=== PATIENT | female | born 1975 | race Caucasian/White ===

== ENCOUNTER 2016-10-08 16:15 | Emergency (ER) | payer MEDICAID ==
[~2016-10-08] VITALS: Ht 154.9 cm; Wt 79.5 kg
[~2016-10-08 16:15] MED LIST: ALBU18HF INH; BENZ-5 PO; ETHA400T25 PO; FLORANEX PO; HYDR-3011 PO; INSU100I27 SC; ISON300T72 PO; METF500T PO; NOVO3I SC; PRED20TA PO; PYR500 PO; Pyridoxine Hcl PO; RIF120L PO; RTPRO NEB
[2016-10-08 16:18] VITALS: Ht 154.9 cm; Wt 79.5 kg
[2016-10-08] MEDS ORDERED: CEPH-443 PO (16:26)
[2016-10-08] MEDS ORDERED: IBUP-1542 PO (16:27)
[2016-10-08] MEDS ORDERED: BACTDS PO (16:27)
--- NOTE | 2016-10-08 16:39 | ERD ---
ER Documentation Chief Complaint Date/Time DATE: 10/08/16 TIME: 16:31 Chief Complaint RT BIG TOE SWELLING X 4 DAYS HPI Patient is a 41-year-old female who presents to the emergency department with right big toe pain and swelling. Patient states 5 days ago she had her nails done. Since that time she started to notice some erythema surrounding her toe. Patient states that the redness has been going in size. Patient states that she is able to ambulate however it is painful. Patient denies any fevers, chills, nausea, vomiting, chest pain, shortness breath or loss of consciousness. Patient denies any trauma or falls. Patient states she has been taking ibuprofen for the pain. Patient states that she was told to soak her foot in Clorox by the nail lady however she did not do that. ROS All systems reviewed and are negative except as per history of present illness. Medications Home Meds Active Scripts Ibuprofen* (Ibuprofen*) 600 Mg Tablet, 600 MG PO Q6, #20 TAB Prov:JULIANA FRIEND PA-C 10/08/16 Sulfamethoxazole-Trimethoprim* (Bactrim* DS) 800-160 Mg Tab, 1 TAB PO BID for 7 Days, TAB Prov:JULIANA FRIEND PA-C 10/08/16 Cephalexin* (Keflex*) 500 Mg Capsule, 500 MG PO QID for 7 Days, CAP Prov:JULIANA FRIEND PA-C 10/08/16 Prednisone* (Prednisone*) 20 Mg Tab, 40 MG PO DAILY for 4 Days, TAB Prov:DESHAUN FORD PA-C 02/13/16 Hydroxyzine Hcl* (Hydroxyzine Hcl*) 25 Mg Tablet, 25 MG PO Q8H Y for ITCHING, # 15 TAB Prov:DESHAUN FORD PA-C 02/13/16 Prednisone* (Prednisone*) 20 Mg Tab, 60 MG PO DAILY for 5 Days, TAB Prov:JL WORKMAN I. ESL INSTRUCTOR 08/21/15 Albuterol Sulfate* (Proventil* Neb) 0.083% Neb, 2.5 MG NEB Q4 Y for SHORTNESS OF BREATH, #30 EA Prov:JL WORKMAN I. ESL INSTRUCTOR 08/21/15 Lactobacillus Acidoph/Bulgaricus* (Floranex*) 1 Tab Chew, 1 TAB PO TID for 30 Days Prov:RAFFI LAWLER 05/01/15 Rifampin* (Rifampin* Pediatric IV Syringe) 300 Mg Cap, 600 MG PO DAILY for 30 Days Prov:RAFFI LAWLER 05/01/15 [Pyridoxine Hcl] 50 MG TAB No Conflict Check, 50 MG PO DAILY for 30 Days, TAB Prov:RAFFI LAWLER 05/01/15 Pyrazinamide (PYRAZINAMIDE) 500 Mg Tab, 1500 MG PO DAILY for 30 Days, TAB Prov:RAFFI LAWLER 05/01/15 Metformin Hcl (Glucophage) 500 Mg Tab, 500 MG PO BID WITH MEALS for 30 Days Prov:RAFFI LAWLER 05/01/15 Isoniazid* (Isoniazid*) 300 Mg Tab, 300 MG PO DAILY for 30 Days Prov:RAFFI LAWLER 05/01/15 Insulin Aspart* (Novolog Insulin Pen*) 100 Unit/Ml Soln, 4 UNIT SC WITH MEALS for 30 Days Prov:RAFFI LAWLER 05/01/15 Insulin Detemir (Levemir Flextouch) 100 Unit/1 Ml Soln, 19 UNIT SC QHS for 30 Days Prov:RAFFI LAWLER 05/01/15 Ethambutol HCl* (Myambutol*) 400 Mg Tab, 1000 MG PO DAILY for 30 Days Prov:RAFFI LAWLER 05/01/15 Benzonatate* (Benzonatate*) 100 Mg Cap, 100 MG PO TID Y for COUGH for 90 Days Prov:RAFFI LAWLER 05/01/15 Albuterol Sulfate* (Ventolin HFA*) 1 Puff Inha, 2 PUFF INH Q6H RESP THERAPY, #1 VIAL Prov:RAFFI LAWLER 05/01/15 Allergies Allergies: Coded Allergies: No Known Drug Allergies (Verified Allergy, Unknown, 04/23/15) PMhx/Soc History of Surgery: No Anesthesia Reaction: No Hx Neurological Disorder: No Hx Respiratory Disorders: No Hx Cardiac Disorders: No Hx Psychiatric Problems: No Hx Miscellaneous Medical Probl: No Hx Alcohol Use: No Hx Substance Use: No Hx Tobacco Use: No Physical Exam Vitals Vital Signs Date Time Temp Pulse Resp B/P Pulse Ox O2 Delivery O2 Flow Rate FiO2 10/08/16 16:18 99.9 81 18 128/77 100 Physical Exam GENERAL: Well-developed, well-nourished female. Appears in no acute distress. HEAD: Normocephalic, atraumatic. EYES: Pupils are equally reactive bilaterally. EOMs grossly intact. No conjunctival erythema. ENT: Moist mucous membranes. No uvula deviation. No kissing tonsils. NECK: Supple. No meningismus. Normal range of motion of the neck. LUNG: Clear to auscultation bilaterally. No rhonchi, wheezing, rales or coarse breath sounds. HEART: Regular rate and rhythm. No murmurs, rubs or gallops. ABDOMEN: No scars, ecchymosis or rashes noted. Soft, nontender, and nondistended. Positive bowel sounds in all four quadrants. No rebound tenderness , no guarding. (-) McBurney's point tenderness. No CVA tenderness. BACK: No midline tenderness. EXTREMITIES: Equal pulses bilaterally. No peripheral clubbing, cyanosis or edema. No unilateral leg swelling. NEUROLOGIC: Alert and oriented. Moving all four extremities without any difficulty. Normal speech. Steady gait. SKIN: Normal color. Erythema and swelling noted to the patient's right big toe. No active bleeding or discharge. No warmth. Patient is able to bend her toe. Area was marked and dated. No lymphatic streaking noted up the patient's foot. Procedures/MDM MEDICAL DECISION MAKING: This is a 41-year-old female who presents with right big toe swelling and erythema after getting her nails done 5 days ago.. Vital signs were reviewed. Patient was afebrile. Patient is not diabetic. Patient's erythema and swelling were marked and dated today. Given these findings, the patients presentation is most consistent with cellulitis. I have a much lower clinical concern for necrotizing fasciitis, sepsis, gangrene, Cresencio-Nikko syndrome, toxic epidural necrolysis, abscess, anaphylaxis, allergic reaction, allergic contact dermatitis, irritant contact dermatitis, fungal infection, insect bite. PRESCRIPTIONS: Keflex, Bactrim, ibuprofen DISCHARGE: At this time, patient is stable for discharge and outpatient management. Advised patient to return to the emergency department 2 days for wound recheck. If symptoms persist, patient may need to see a air intelligence officer for further examinations and testing. I have instructed the patient to promptly return to the ER at any time for any new or worsening symptoms including increased pain, fever, redness, swelling, warmth, difficulty breathing or vomiting. The patient and/or family expressed understanding of and agreement with this plan. All questions were answered. Home care instructions were provided. Departure Diagnosis: Primary Impression: Cellulitis Site of cellulitis: unspecified site Qualified Code: L03.90 - Cellulitis, unspecified cellulitis site Condition: Stable Patient Instructions: Cellulitis Referrals: [facility] YOU HAVE RECEIVED A MEDICAL SCREENING EXAM AND THE RESULTS INDICATE THAT YOU DO NOT HAVE A CONDITION THAT REQUIRES URGENT TREATMENT IN THE EMERGENCY DEPARTMENT. FURTHER EVALUATION AND TREATMENT OF YOUR CONDITION CAN WAIT UNTIL YOU ARE SEEN IN YOUR DOCTORS OFFICE WITHIN THE NEXT 1-2 DAYS. IT IS YOUR RESPONSIBILITY TO MAKE AN APPOINTMENT FOR FOLOW-UP CARE. IF YOU HAVE A PRIMARY DOCTOR --you should call your primary doctor and schedule an appointment IF YOU DO NOT HAVE A PRIMARY DOCTOR YOU CAN CALL OUR PHYSICIAN REFERRAL HOTLINE AT IF YOU CAN NOT AFFORD TO SEE A PHYSICIAN YOU CAN CHOSE FROM THE FOLLOWING [facility] [address] [facility] [address] [facility]. [facility] [address] [facility] [address] [facility] [address] [facility]. [facility]. [address] [facility] YOU HAVE RECEIVED A MEDICAL SCREENING EXAM AND THE RESULTS INDICATE THAT YOU DO NOT HAVE A CONDITION THAT REQUIRES URGENT TREATMENT IN THE EMERGENCY DEPARTMENT. FURTHER EVALUATION AND TREATMENT OF YOUR CONDITION CAN WAIT UNTIL YOU ARE SEEN IN YOUR DOCTORS OFFICE WITHIN THE NEXT 1-2 DAYS. IT IS YOUR RESPONSIBILITY TO MAKE AN APPOINTMENT FOR FOLOW-UP CARE. IF YOU HAVE A PRIMARY DOCTOR --you should call your primary doctor and schedule and appointment IF YOU DO NOT HAVE A PRIMARY DOCTOR YOU CAN CALL OUR PHYSICIAN REFERRAL HOTLINE AT . IF YOU CAN NOT AFFORD TO SEE A PHYSICIAN YOU CAN CHOSE FROM THE FOLLOWING [facility]: [facility] [address] [place] [address] [facility] [address] [place] [address] [facility] + [facility] [address] [place] [address] Additional Instructions: Return in 2 days for wound recheck. Return sooner for any worsening symptoms or signs including swelling, redness, fevers, chills, nausea, vomiting. Call your primary care doctor TOMORROW for an appointment during the next 1-2 days.See the doctor sooner or return here if your condition worsens before your appointment time. JULIANA FRIEND PA-C Oct 08, 2016 16:38
[2016-10-09] MEDS ORDERED: HC1C30 TOP (16:42)
== END 2016-10-10 07:20 | disposition home or self-care (01) ==
LOC: E/R 16:15
DX: L03.031 Cellulitis of right toe (principal); E11.9 Type 2 diabetes mellitus without complications; Z79.4 Long term (current) use of insulin; Z79.84 Long term (current) use of oral hypoglycemic drugs
CPT/HCPCS: 99284

== ENCOUNTER 2016-10-09 15:53 | Emergency (ER) | payer MEDICAID ==
[~2016-10-09] VITALS: Wt 71.0 kg
[~2016-10-09 15:53] MED LIST changes: +BACTDS PO; +CEPH-443 PO; +IBUP-1542 PO
[2016-10-09] MEDS ORDERED: HC1C30 TOP (16:42)
--- NOTE | 2016-10-09 18:41 | ERD ---
DATE OF SERVICE: HISTORY OF PRESENT ILLNESS: The patient is a 41-year-old female coming in complaining of right toe pain. The patient was seen yesterday. The patient had fake toenails placed earlier this week. She began to experience some pain to her right toenail. She has never had this before. She was given Keflex and ibuprofen. She is taking her antibiotics. She states that the pain has stopped on her r ight toenail; however, now it is now on her left toenail. She states that there is some mild swelli ng. PAST MEDICAL HISTORY: Denies any other medical problems. ALLERGIES: DENIES. SURGICAL HISTORY: Denies. SOCIAL HISTORY: Denies. REVIEW OF SYSTEMS: A 12-point review of systems was done. Refer to HPI for positives, all other sy stems negative. PHYSICAL EXAMINATION: VITAL SIGNS: Temperature 98, pulse 77, blood pressure is 122/78, respiratory 18, O2 saturation 99% on room air. Pain intensity is 0/10. GENERAL: The patient is well-appearing, well-nourished, no acute distress. HEART: Regular rate and rhythm. No murmurs, clicks, rubs, or gallops. No S3 or S4. CHEST: Clear to auscultation bilaterally. There are no rales, wheezes, or rhonchi. HEENT: Atraumatic. Conjunctivae are pink. Pupils equal, round, and reactive to light. There is n o scleral icterus. Tympanic membranes clear bilaterally. Oropharynx clear. No nystagmus or photop hobia. ABDOMEN: Soft, nontender and nondistended. Good bowel sounds. No rebound or guarding. No gross p eritonitis. No gross organomegaly or masses. No Bettencourt sign or McBurney point tenderness. EXTREMITIES: Equal pulses bilaterally. There is no peripheral clubbing, cyanosis or edema. SKIN: There is no erythema or swelling noted to the toes. There are no ulcerations, no fluctuance, no purulence. DIAGNOSIS: Contact dermatitis. MEDICAL DECISION MAKING: I have low suspicion for deep abscess formation. Low suspicion for ingrow n toenails. The patient may have contact dermatitis secondary to procedure and I told her to contin ue taking antibiotics. I prescribed hydrocortisone for irritation. DISCHARGE: The patient is discharged stable. The patient given prescription for hydrocortisone. T old to follow up with primary care within 1 to 2 days for reevaluation. The patient was told if sym ptoms progress or worsen to return to the ER. All other questions answered at time of discharge. D ischarge summary given at the time of departure. The patient understood and complied with plan. Dictated By: SAMEERA LAMAR/SANGITA Conf#: [id number] DID#: [id number]
== END 2016-10-09 17:01 | disposition home or self-care (01) ==
LOC: FTE 15:53
DX: L25.9 Unspecified contact dermatitis, unspecified cause (principal); E11.9 Type 2 diabetes mellitus without complications
CPT/HCPCS: 99283

== ENCOUNTER 2019-02-01 22:32 | Emergency (ER) | payer MEDICAID ==
[~2019-02-01] VITALS: Wt 70.6 kg
[~2019-02-01 22:32] MED LIST changes: +ETHA400T24 PO; -ETHA400T25 PO; +HC1C30 TOP; -HYDR-3011 PO; +HYDR-843 PO; +ISON300T18 PO; -ISON300T72 PO; -PYR500 PO; +PYRA500T21 PO
[2019-02-01 22:40] VITALS: BP 136/62; PULSE 84; RESP 18
[2019-02-02] MEDS ORDERED: LIDOCAINE 2% (MDV) 20 ML INJ INJ STA (02:11)
[2019-02-02] MEDS ORDERED: HYDROCODONE/APAP (5/325) TAB PO STA (02:11)
[2019-02-02] MEDS ORDERED: ACETAMINOPHEN 325 MG TAB PO ONE (02:30)
[2019-02-02] MEDS ORDERED: CEPH-443 PO (02:36)
[2019-02-02] MEDS ORDERED: IBUP-1542 PO (02:37)
--- NOTE | 2019-02-02 02:50 | ERD ---
ER Documentation Chief Complaint Chief Complaint pain/swelling with discharge left big toe x 3 days HPI This is a 44-year-old female who presents to the ED complaining of left big toe pain and swelling x3 days. Patient states she went to a nail salon and was told she had an ingrown toenail. Her ingrown toenail was removed 3 days ago however patient continues to complain of progressively worsening swelling and pain. She also reports some redness at the lateral edges of the nailbed. She also has some discharge as well. She denies any fevers. Denies any trauma. Denies any numbness or tingling of her lower extremities. No other complaints. ROS All systems reviewed and are negative except as per history of present illness. Medications Home Meds Active Scripts Ibuprofen* (Motrin*) 600 Mg Tab, 600 MG PO Q6H PRN for PAIN AND OR ELEVATED TEMP, #30 TAB Prov:LEN BOWLES PA-C 02/02/19 Cephalexin* (Keflex*) 500 Mg Capsule, 500 MG PO QID for 5 Days, CAP Prov:LEN BOWLESC 02/02/19 Hydrocortisone* Topical (Hydrocortisone* Topical) 1%-28.35 Gm Cream..g., 1 APPLIC TOP Q6 PRN for ITCHING, #1 TUB Prov:PHILIPPE CALVO PA-C 10/09/16 Ibuprofen* (Ibuprofen*) 600 Mg Tablet, 600 MG PO Q6, #20 TAB Prov:JULIANA FRIEND PA-C 10/08/16 Sulfamethoxazole-Trimethoprim* (Bactrim* DS) 800-160 Mg Tab, 1 TAB PO BID for 7 Days, TAB Prov:JULIANA FRIENDC 10/08/16 Cephalexin* (Keflex*) 500 Mg Capsule, 500 MG PO QID for 7 Days, CAP Prov:JULIANA FRIEND PA-C 10/08/16 Prednisone* (Prednisone*) 20 Mg Tab, 40 MG PO DAILY for 4 Days, TAB Prov:DESHAUN FORD PA-C 02/13/16 Hydroxyzine Hcl* (Hydroxyzine Hcl*) 25 Mg Tablet, 25 MG PO Q8H PRN for ITCHING, #15 TAB Prov:DESHAUN FORD PA-C 7/23/16 Prednisone* (Prednisone*) 20 Mg Tab, 60 MG PO DAILY for 5 Days, TAB Prov:JL WORKMAN I. CAN REFORMING MACHINE OPERATOR 08/21/15 Albuterol Sulfate* (Proventil* Neb) 0.083% Neb, 2.5 MG NEB Q4 PRN for SHORTNESS OF BREATH, #30 EA Prov:JL WORKMAN I. CAN REFORMING MACHINE OPERATOR 08/21/15 Lactobacillus Acidoph/Bulgaricus* (Floranex*) 1 Tab Chew, 1 TAB PO TID for 30 Days Prov:BUCKYRAFFI 05/01/15 Rifampin* (Rifampin* Pediatric IV Syringe) 300 Mg Cap, 600 MG PO DAILY for 30 Days Prov:RAFFI LAWLER Chrissy 05/01/15 [Pyridoxine Hcl] 50 MG TAB No Conflict Check, 50 MG PO DAILY for 30 Days, TAB Prov:RAFFI LAWLER Chrissy 05/01/15 Pyrazinamide (PYRAZINAMIDE) 500 Mg Tab, 1500 MG PO DAILY for 30 Days, TAB Prov:RAFFI LAWLER Chrissy 05/01/15 Metformin Hcl (Glucophage) 500 Mg Tab, 500 MG PO BID WITH MEALS for 30 Days Prov:RAFFI LAWLER Chrissy 05/01/15 Isoniazid* (Isoniazid*) 300 Mg Tab, 300 MG PO DAILY for 30 Days Prov:RAFFI LAWLER 05/01/15 Insulin Aspart* (Novolog Insulin Pen*) 100 Unit/Ml Soln, 4 UNIT SC WITH MEALS for 30 Days Prov:RAFFI LAWLER 05/01/15 Insulin Detemir (Levemir Flextouch) 100 Unit/1 Ml Soln, 19 UNIT SC QHS for 30 Days Prov:RAFFI LAWLER 05/01/15 Ethambutol HCl* (Myambutol*) 400 Mg Tab, 1000 MG PO DAILY for 30 Days Prov:RAFFI LAWLER 05/01/15 Benzonatate* (Benzonatate*) 100 Mg Cap, 100 MG PO TID PRN for COUGH for 90 Days Prov:RAFFI LAWLER 05/01/15 Albuterol Sulfate* (Ventolin HFA*) 1 Puff Inha, 2 PUFF INH Q6H RESP THERAPY, #1 VIAL Prov:RAFFI LAWLER 05/01/15 Allergies Allergies: Coded Allergies: No Known Drug Allergies (Verified Allergy, Unknown, 04/23/15) PMhx/Soc Medical and Surgical Hx: pt denies Medical Hx History of Surgery: No Anesthesia Reaction: No Hx Neurological Disorder: No Hx Respiratory Disorders: No Hx Cardiac Disorders: No Hx Psychiatric Problems: No Hx Miscellaneous Medical Probl: No Hx Alcohol Use: No Hx Substance Use: No Hx Tobacco Use: No Smoking Status: Never smoker FmHx Family History: No diabetes Physical Exam Vitals Vital Signs Date Temp Pulse Resp B/P (MAP) Pulse Ox O2 O2 Flow FiO2 Time Delivery Rate 02/01/19 98.1 84 18 136/62 98 22:40 (86) Physical Exam Const: No acute distress Head: Atraumatic Eyes: Normal Conjunctiva ENT: Normal External Ears, Nose and Mouth. Ext: + Left great toe with erythema and swelling of the distal aspect and lateral ends of the nailbed, no discharge, small piece of ingrown toenail retained at the medial nail fold with tenderness to palpation. Distal pulses intact. Full range of motion of toes 1 through 5. Cap refill less than 2 seconds. Neur: Awake and alert Psych: Normal Mood and Affect Results 24 hrs Current Medications Medications Dose Sig/Fidel Start Time Status Last (Trade) Ordered Route PRN Stop Time Admin Dose Reason Admin Lidocaine 20 ml ONCE STAT 02/02/19 DC (Xylocaine INJ 02:11 2% (Mdv) 20 02/02/19 02:13 ml) 1 tab ONCE STAT 02/02/19 DC Acetaminophen PO 02:11 / 02/02/19 02:18 Hydrocodone Bitart (Harvey (5/325)) 650 mg ONCE ONCE 02/02/19 DC 02/02/19 Acetaminophen PO 02:30 02:21 (Tylenol 02/02/19 02:31 Tab) Procedures/MDM PROCEDURES: Toenail Removal by me: Anesthesia: 1% lidocaine Digital Block Location: Left great toe Technique: Pulling with hemostats. Packing: Non-adherent dressing applied Complications: None Recommend bid dressing changes and warm water soaks. ED COURSE: The patient was given Tylenol The medication was well tolerated and the patient had market improvement in symptoms. The patient remained stable throughout ED course. MEDICAL DECISION MAKING: This is a 44-year-old female who presents with left great toe pain after removal of her toenail few days ago. Patient has evidence of retained piece of her toenail at the medial aspect of the nail fold, which is likely the cause of her continued pain. This was removed with hemostats after proper anesthesia. Patient tolerated procedure well. Patient also has evidence of cellulitis around her toe, will treat this with outpatient antibiotics. Patient has no fever, vital signs are normal. A low suspicion for sepsis, osteomyelitis, or deep space tissue infection at this time. Recommended primary care follow-up in 1 week, strict return precautions discussed. PRESCRIPTIONS: Keflex SPECIALIST FOLLOW UP RECOMMENDED: None Patient has been advised to follow up with primary care in 1-2 days. Departure Diagnosis: Primary Impression: Ingrown toenail Condition: Stable Patient Instructions: Ingrown Toenail, Infected (Abx Only) Referrals: [facility] YOU HAVE RECEIVED A MEDICAL SCREENING EXAM AND THE RESULTS INDICATE THAT YOU DO NOT HAVE A CONDITION THAT REQUIRES URGENT TREATMENT IN THE EMERGENCY DEPARTMENT. FURTHER EVALUATION AND TREATMENT OF YOUR CONDITION CAN WAIT UNTIL YOU ARE SEEN IN YOUR DOCTORS OFFICE WITHIN THE NEXT 1-2 DAYS. IT IS YOUR RESPONSIBILITY TO MAKE AN APPOINTMENT FOR [facility]. IF YOU HAVE A PRIMARY DOCTOR --you should call your primary doctor and schedule an appointment IF YOU DO NOT HAVE A PRIMARY DOCTOR YOU CAN CALL OUR PHYSICIAN REFERRAL HOTLINE AT IF YOU CAN NOT AFFORD TO SEE A PHYSICIAN YOU CAN CHOSE FROM THE FOLLOWING [facility] [address] [facility]. [facility] [address] [facility]. [facility] [address] [facility]. [facility] [address] [facility]. [facility] [address] [facility]. [facility]. [address] [facility]. [facility] YOU HAVE RECEIVED A MEDICAL SCREENING EXAM AND THE RESULTS INDICATE THAT YOU DO NOT HAVE A CONDITION THAT REQUIRES URGENT TREATMENT IN THE EMERGENCY DEPARTMENT. FURTHER EVALUATION AND TREATMENT OF YOUR CONDITION CAN WAIT UNTIL YOU ARE SEEN IN YOUR DOCTORS OFFICE WITHIN THE NEXT 1-2 DAYS. IT IS YOUR RESPONSIBILITY TO MAKE AN APPOINTMENT FOR FOLOW-UP CARE. IF YOU HAVE A PRIMARY DOCTOR --you should call your primary doctor and schedule and appointment IF YOU DO NOT HAVE A PRIMARY DOCTOR YOU CAN CALL OUR PHYSICIAN REFERRAL HOTLINE AT . IF YOU CAN NOT AFFORD TO SEE A PHYSICIAN YOU CAN CHOSE FROM THE FOLLOWING [facility]: [facility] [address] [place] [address] [facility] [address] [place] [address] [facility] + [facility] [address] [place] [address] Additional Instructions: You take the bandage off tomorrow and soak your toenail and warm water. Take the antibiotics for the next 5 days. Return here for any new or worsening symptoms. LEN BOWLES PA-C Feb 02, 2019 02:50
== END 2019-02-02 02:47 | disposition home or self-care (01) ==
LOC: FTE 22:32
DX: L60.0 Ingrowing nail (principal)
CPT/HCPCS: 11765; Z7610